=== PATIENT | male | born 1985 | race Caucasian/White ===

== ENCOUNTER 2020-06-20 21:15 | Emergency (ER) | payer SELFPAY ==
[2020-06-20 21:10] VITALS: BP 164/102; PULSE 103; RESP 16; TEMP 36.8; O2SAT 100
--- NOTE | 2020-06-20 21:22 | ECG_ITS ---
Measurements Intervals [place] Rate: 100 P: 71 MO: 130 QRS: 24 QRSD: 90 T: 48 QT: 341 QTc: 440 Interpretive Statements SINUS TACHYCARDIA BASELINE ARTIFACT- I, II, III, AVR, AVF, V2-V6 BORDERLINE ECG Electronically Signed On 06-21-2020 7:03:27 CDT by Scot Velasquez D.O.
--- NOTE | 2020-06-20 22:04 | PC.NURSE ---
patient jumped off stretcher and ran out of the ems doors. pd notified
--- NOTE | 2020-06-20 22:05 | PC.NURSE ---
Attempted to take pt to CT scan he jumped got of the stretcher and wandered around the hallways. Pt wasnt combative but was difficult to redirect. Pt was walked back to the stretcher and he laid down. When taken back into the CT room he got up and walked out again. Pt was walked back to room with RN but he walked out the ambulance doors, took off his gown and took off running towards the road. PD called for pt elopement
== END 2020-06-20 22:10 | disposition left against medical advice (07) ==
PROVIDERS: Emergency Provider Emergency Medicine
DX: R07.9 Chest pain, unspecified (principal)
CPT/HCPCS: 93005; 99199